=== PATIENT | female | born 1965 | race Two or more races ===

== ENCOUNTER → 2017-02-19 | Day surgery (SDC) | payer OTHER ==
[~2017-02-19] MED LIST: ACETAMINOPHEN650 M1 PO; ASPIRIN81 MG PO; COREG6.25 M1 PO; FISH OIL 1,0001 CA2 PO; GABAPENTIN300 M2 PO; HUMALOG MI100 UNIT/2 SUBQ; INVOKANA100 MG PO; IRON325 ( 651 PO; LIPITOR20 MG PO; LISINOPRIL10 MG PO; METFORMIN HCL1000 M1 PO; OMEPRAZOLE40 M1 PO; PERCOCET5/325 PO; TRADJENTA5 MG PO; VICODIN 5/500 T1 TAB PO
--- NOTE | ~2017-02-19 | EKG ---
PATIENT: MILADIS PERERA UNIT #: [id number] Ventricular Rate: 103 BPM Atrial Rate: 103 BPM P-R Interval: 196 ms QRS Duration: 70 ms Q-T Interval: 338 ms QTC Calculation(Bezet): 442 ms P [place]: 61 degrees Calculated R [place]: 5 degrees Calculated T [place]: 26 degrees Diagnosis Line: Sinus tachycardia Diagnosis Line: Otherwise normal ECG Diagnosis Line: When compared with ECG of 23-AUG-2016 11:50, Diagnosis Line: No significant change was found Diagnosis Line: Confirmed by ANABELL STEVENSON MD ([id number]) on 02/19/2017 Diagnosis Line: 10:24:29 PM INTERPRETING MD: ELVA GRANT
--- NOTE | ~2017-02-19 | OR ---
Unit #: [id number] #: [id number] Patient: MILADIS PERERA [id number] [address] [place], [place] [address] [id number] O MR#: [id number] NAME: MILADIS PERERA ROOM: Date of Procedure: 02/19/2017 Admission Date: 02/19/2017 Surgeon: Casper Stevens M.D. : 1965 Attending Physician: Casper Stevens M.D. Referring Physician: Casper Stevens M.D. Primary Care Physician: Lisa Amos M.D. OPERATIVE REPORT PREOPERATIVE DIAGNOSIS Screening colonoscopy. POSTOPERATIVE DIAGNOSIS Screening colonoscopy. PROCEDURE PERFORMED Colonoscopy to cecum. ANESTHESIA Monitored anesthesia care. FINDINGS The patient was found to have a normal colon. SPECIMENS None. COMPLICATIONS None apparent. CONDITION The patient tolerated the procedure well. INDICATIONS FOR PROCEDURE The patient is a 51-year-old [place] woman, who has never had a screening colonoscopy performed. She presents at this time for screening colonoscopy. DESCRIPTION OF PROCEDURE After obtaining informed consent using [employer] ([email or web address]) direct of real estate, [employer], the patient was brought to the endoscopy suite and had digital examination performed. There were no palpable masses and good sphincter tone. The colonoscope was placed through the anus and slowly advanced to the level of the cecum without difficulty and with the lumen always in view. The cecum was normal as was the ileocecal valve. The ascending colon was normal as was the hepatic flexure, transverse colon, splenic flexure, descending colon, sigmoid colon, and rectum. On retroflexing in the rectum to the anorectal junction, the patient was found to have no significant abnormality. The scope was removed without difficulty. The patient went from the endoscopy suite to the recovery area in stable condition. Unit #: [id number] #: [id number] Patient: MILADIS PERERA RECOMMENDATIONS High-fiber diet, lots of liquids, tucks or wipes p.r.n. The patient is scheduled for ventral hernia repair later this week by Dr. Greenberg. Dictated by... Casper Stevens M.D. JPG/gregl TD: 02/19/2017 13:30 JOB #: [id number] CC: [facility] OPERATIVE REPORT Page 1 of 1 X Casper Stevens MD PROCEDURE OPERATIVE NOTE
[2017-02-19 12:23] LABS: CREATININE SERUM 0.5 mg/dL (0.6-1.4); GLOM FILT RATE Estimated 111.3 mL/min (>60); POTASSIUM 4.2 mmol/L (3.5-5.1)
== END | disposition home or self-care (01) ==
LOC: COPS 08:48
PROVIDERS: Surgery
DX: Z12.11 Encounter for screening for malignant neoplasm of colon (principal); E04.1 Nontoxic single thyroid nodule; K21.9 Gastro-esophageal reflux disease without esophagitis; E11.9 Type 2 diabetes mellitus without complications; K43.9 Ventral hernia without obstruction or gangrene; Z79.82 Long term (current) use of aspirin; Z79.899 Other long term (current) drug therapy
CPT/HCPCS: 80048; 82947; 93005

== ENCOUNTER → 2017-02-21 | Day surgery (SDC) | payer OTHER ==
--- NOTE | ~2017-02-21 | OR ---
Unit #: [id number] #: [id number] Patient: MILADIS PERERA [id number] [address] [address] [id number] O MR#: [id number] NAME: MILADIS PERERA ROOM: Date of Procedure: 02/21/2017 Admission Date: 02/21/2017 Surgeon: Marshall Greenberg M.D. : 1965 Attending Physician: Marshall Greenberg M.D. Referring Physician: Marshall Greenberg M.D. Primary Care Physician: Lisa Amos M.D. OPERATIVE REPORT PREOPERATIVE DIAGNOSIS Incarcerated incisional hernia. POSTOPERATIVE DIAGNOSIS Complex incarcerated incisional hernia, measuring 15 cm x 8 cm. PROCEDURE PERFORMED Laparoscopic ventral hernia repair of incarcerated incisional hernia with 8 x 10 Ventralight mesh. APPEALS COORDINATOR [place]. ANESTHESIA General endotracheal anesthesia. ESTIMATED BLOOD LOSS Minimal. IV FLUIDS 800 crystalloid. COMPLICATIONS None. INDICATIONS FOR PROCEDURE The patient is a lady, who presents with a complex ventral hernia multiple defects. She presents for laparoscopic repair. DESCRIPTION OF PROCEDURE The patient was taken to the operating theater and placed in the supine position. General anesthesia was induced. The abdomen was prepped and draped. A 5-mm Optiview trocar was placed in the left upper quadrant without difficulty. Abdomen was insufflated to 15 mmHg with CO2. Under direct vision, I placed left lower quadrant 10 mm, right upper quadrant 5 mm, right lower quadrant 5 mm. General inspection of the abdomen revealed a complex hernia as previously mentioned with multiple defects. These were reduced with a combination of sharp and blunt dissection. I then placed an 8 x 10 Ventralight mesh into position. This was held in place with single-stranded Vicryl sutures, delivered transcutaneous. This was then secured with SorbaFix Tacker with 2 circumferential rows of tacks. The mesh covered the defect by at least 5 cm in all circumference. Unit #: [id number] #: [id number] Patient: MILADIS PERERA Hemostasis was adequate. I removed the ports under direct vision. I cut the sutures at the skin level and closed with 4-0 Vicryl. The patient tolerated the procedure well and sent to the recovery room in good condition. Dictated by... Ashlee Tovar TD: 02/21/2017 20:31 JOB #: [id number] OPERATIVE REPORT Page 1 of 1 X Marshall Greenberg MD PROCEDURE OPERATIVE NOTE
[2017-02-21 10:57] LABS: BASOPHIL% 0.5 % (0-2.5); EOSINOPHIL# 0.1 X10e3 (0-0.7); EOSINOPHIL% 0.8 % (0.0-7.0); HEMATOCRIT 39.2 % (35.0-45.0); HEMOGLOBIN 12.3 gm/dL (12.0-16.0); LYMPHOCYTE# 2.8 X10e3 (1.0-3.5); MEAN CELL VOLUME 77.8 FL (83-96); MEAN CORPUSCULAR HEMOGLOBIN 24.4 PG (28-34); MEAN CORPUSCULAR HGB CONC 31.3 g/dL (30-36); MEAN PLATELET VOLUME 8.9 FL (6.5-11.5); MONOCYTE# 0.6 X10e3 (0-1.0); MONOCYTE% 6.5 % (3.0-12.0); NEUTROPHIL# 5.6 X10e3 (1.5-7.1); NEUTROPHIL% 61.2 % (40-75); PLATELET COUNT 253 X10e3 (140-420); RED BLOOD COUNT 5.03 X10e (3.90-5.30); RED CELL DISTRIBUTION WIDTH 15.1 % (11.0-15.5); WHITE BLOOD COUNT 9.1 X10e3 (4.0-10.5)
[2017-02-21 10:58] LABS: DIFF IND NO
== END | disposition home or self-care (01) ==
LOC: CSUR 09:57
PROVIDERS: Surgery
DX: K43.0 Incisional hernia with obstruction, without gangrene (principal); E11.9 Type 2 diabetes mellitus without complications
CPT/HCPCS: 82947; 85025; C1781; J0131; J0330; J0690; J1644; J1885; J2250; J2405; J2710; J3010